=== PATIENT | male | born 1940 | race Caucasian/White ===

== ENCOUNTER 2020-05-16 17:54 | Inpatient (IN) | payer MEDICARE, OTHER ==
[~2020-05-16] VITALS: Ht 170.2 cm; Wt 69.0 kg
--- NOTE | ~2020-05-16 | PROC ---
[address] [address] PROCEDURE REPORT Name: ELÍAS MCNEILL Room: [address] IN M.R.#: [id number] Admission: 05/16/20 Attend Phys: Ely Olguin Discharge: 05/22/20 Date of : 44 Report #: [id number] THIS REPORT FOR: cc: Dereck Fisher MD, Matthew W. MD ~ [facility],Medical Records Staff For GI report, please see the Provation report in Perceptive 7 content. By: [id number] Records Staff [facility] /MAYURI
[~2020-05-16 17:54] MED LIST: NORCO 7.5-3251 EACH PO; TAMSULOSIN HCL0.4 M1 PO; [UNRECOGNIZED DRUG - REMARK] PO
[2020-05-16 17:57] VITALS: BP 91/50
[2020-05-16] MEDS ORDERED: CHILDREN'S ASPI81 M1 PO (18:06)
[2020-05-16 18:28] LABS: ABSOLUTE EOSINOPHILS 0.2 thou/uL (0.0-0.7); ABSOLUTE LYMPHOCYTES 1.9 thou/uL (0.8-5.3); ABSOLUTE MONOCYTES 1.1 thou/uL (0.0-1.2); ABSOLUTE NEUTROPHILS 13.3 thou/uL (1.6-8.1); BASOPHILS 0.2 %; EOSINOPHILS 1.2 %; HEMOGLOBIN 7.5 gm/dL (14.0-18.0); LYMPHOCYTES 11.4 %; MCH 32.3 pg (26.0-34.0); MCHC 33.9 g/dL (28.0-37.0); MCV 95.3 fL (80.0-100.0); MONOCYTES 6.7 %; MPV 8.1 fl. (7.2-11.1); NUCLEATED RBCS 0 /100WBC; PLATELET COUNT* 269 thou/uL (150-400); POLYS 80.5 %; RBC 2.31 mil/uL (4.50-6.00); RDW-CV 12.8 % (10.5-14.5); WBC 16.5 thou/uL (4.0-11.0)
[2020-05-16 18:37] LABS: CALCIUM 7.8 mg/dL (8.5-10.1); POTASSIUM 3.8 mmol/L (3.5-5.1)
[2020-05-16 18:40] LABS: APTT 22.4 Seconds (25.0-31.3); PROTIME 10.3 Seconds (9.20-11.50)
[2020-05-16 18:42] LABS: ALBUMIN 2.5 g/dL (3.4-5.0); TOTAL BILIRUBIN 0.3 mg/dL (<0.1-1.0); TOTAL PROTEIN 5.3 g/dL (6.4-8.2)
[2020-05-16 18:53] LABS: URINE BILIRUBIN NEGATIVE (Negative); URINE BLOOD TRACE (Negative); URINE CLARITY CLEAR; URINE COLOR YELLOW; URINE GLUCOSE-RANDOM NEGATIVE (Negative); URINE KETONES NEGATIVE (Negative); URINE LEUKOCYTES-REFLEX NEGATIVE (Negative); URINE NITRITE-REFLEX NEGATIVE (Negative); URINE PROTEIN NEGATIVE (Negative); URINE SPECIFIC GRAVITY 1.015 (1.005-1.030); URINE UROBILINOGEN 0.2 E.U./dl (0.2-1.0)
[2020-05-16 20:24] LABS: HEMATOCRIT 19.9 % (42.0-52.0); HEMOGLOBIN 6.8 gm/dL (14.0-18.0)
--- NOTE | 2020-05-16 22:04 | NUR ---
BLOOD PRODUCTS STARTED AT 2204. COSIGNED WITH ONESIMO OLIVER. BLOOD STARTED AT 125ML/HR
--- NOTE | 2020-05-16 22:19 | NUR ---
PATIENT TOLERATED BLOOD PRODUCT FOR THE FIRST 15 MINUTES. RATE INCREASED TO 195MLS/HR. PATIENT IS IN NO SIGNS OF DISTRESS. WILL CONTINUE TO MONITOR
--- NOTE | 2020-05-16 22:48 | NUR ---
PATIENT ADMITTED TO 203 BEFORE 1HR VITAL ON BLOOD PRODUCT . FRIDA OLIVER TOOK REPORT
[2020-05-16 22:49] VITALS: BP 110/70
[2020-05-16 23:30] VITALS: BP 106/64
[2020-05-17] VITALS (8 sets, daily range): BP systolic 96–144; BP diastolic 53–69
[2020-05-17 02:07] LABS: HEMATOCRIT 22.3 % (42.0-52.0); HEMOGLOBIN 7.6 gm/dL (14.0-18.0)
--- NOTE | 2020-05-17 09:53 | EKG ---
[place] [address] ELECTROCARDIOGRAM REPORT Name: ELÍAS MCNEILL Room: [address] ADM IN .R.#: [id number] Admission: 05/16/20 Attend Phys: Lisa Whitmore Discharge: Date of : 44 Date of Service: 05/16/201801 Report #: [id number] THIS REPORT FOR: //name// [facility] ED Test Date: 2020-05-16 Test Time: 18:02:54 Pat Name: ELÍAS MCNEILL Department: Room: [facility] Gender: M [employer]: BENNY : [id number] Requested By: Barry Bryant Order Number: [id number] MD: Phillip Devi Measurements Intervals Blevins Rate: 97 P: 44 CA: 144 QRS: 22 QRSD: 93 T: 61 QT: 357 QTc: 454 Interpretive Statements Sinus rhythm Borderline low voltage, extremity leads Abnormal R-wave progression, early transition Compared to ECG 02/15/2013 09:56:17 No significant changes Electronically Signed On 05-17-2020 9:53:19 PRISON GUARD by Phillip Devi [email or web address] <ELECTRONICALLY SIGNED> By: Phillip Devi MD, [facility] 05/17/20 0953 01 180 Phillip Devi MD, [facility] /EPI
--- NOTE | 2020-05-17 12:46 | NUR ---
Pt is A&O. Resides at home alone. Independent. No DME. No hx of HH or SNF. Pt is hopeful that he will be able to return home at dc with HH. Dr to place PT orders. GI following.
[2020-05-17 13:20] LABS: ALBUMIN 2.2 g/dL (3.4-5.0); CALCIUM 7.8 mg/dL (8.5-10.1); CREATININE 0.9 mg/dL (0.6-1.3); POTASSIUM 3.4 mmol/L (3.5-5.1); TOTAL BILIRUBIN 0.2 mg/dL (<0.1-1.0); TOTAL PROTEIN 4.9 g/dL (6.4-8.2)
[2020-05-17 13:24] LABS: ABSOLUTE BASOPHILS 0.1 thou/uL (0.0-0.2); ABSOLUTE EOSINOPHILS 0.2 thou/uL (0.0-0.7); ABSOLUTE LYMPHOCYTES 1.8 thou/uL (0.8-5.3); ABSOLUTE MONOCYTES 0.9 thou/uL (0.0-1.2); ABSOLUTE NEUTROPHILS 9.3 thou/uL (1.6-8.1); BASOPHILS 0.4 %; EOSINOPHILS 1.8 %; LYMPHOCYTES 14.9 %; MCH 32.1 pg (26.0-34.0); MCHC 34.6 g/dL (28.0-37.0); MONOCYTES 7.1 %; MPV 8.6 fl. (7.2-11.1); NUCLEATED RBCS 0 /100WBC; PLATELET COUNT* 226 thou/uL (150-400); POLYS 75.8 %; RBC 1.99 mil/uL (4.50-6.00); RDW-CV 14.5 % (10.5-14.5); WBC 12.3 thou/uL (4.0-11.0)
[2020-05-17 13:29] LABS: HEMATOCRIT 18.5 % (42.0-52.0); HEMOGLOBIN 6.4 gm/dL (14.0-18.0)
[2020-05-18 00:20] LABS: HEMATOCRIT 25.1 % (42.0-52.0); HEMOGLOBIN 8.7 gm/dL (14.0-18.0)
[2020-05-18 04:30] VITALS: BP 137/49
[2020-05-18 04:45] LABS: HEMATOCRIT 24.8 % (42.0-52.0); HEMOGLOBIN 8.6 gm/dL (14.0-18.0); MCH 30.3 pg (26.0-34.0); MCHC 34.6 g/dL (28.0-37.0); MPV 8.8 fl. (7.2-11.1); RBC 2.83 mil/uL (4.50-6.00); RDW-CV 16.1 % (10.5-14.5); WBC 12.3 thou/uL (4.0-11.0)
[2020-05-18 05:21] LABS: ALBUMIN 2.4 g/dL (3.4-5.0); CALCIUM 7.6 mg/dL (8.5-10.1); CREATININE 0.7 mg/dL (0.6-1.3); POTASSIUM 3.1 mmol/L (3.5-5.1); TOTAL BILIRUBIN 0.9 mg/dL (<0.1-1.0); TOTAL PROTEIN 5.1 g/dL (6.4-8.2)
[2020-05-18 05:24] LABS: MCV 87.5 fL (80.0-100.0)
[2020-05-18 10:13] LABS: HEMATOCRIT 24.6 % (42.0-52.0); HEMOGLOBIN 8.4 gm/dL (14.0-18.0)
--- NOTE | 2020-05-18 12:36 | NUR ---
Pt to have have scope today.
[2020-05-18 16:26] LABS: HEMATOCRIT 24.5 % (42.0-52.0); HEMOGLOBIN 8.4 gm/dL (14.0-18.0)
[2020-05-18 17:02] VITALS: BP 129/68
--- NOTE | 2020-05-18 20:19 | NUR ---
I ASSUMED CARE OF THE PATIENT AT 0700. HE IS ALERT AND ORIENTED X4 AND IS ON BEDREST. BED IS IN THE LOW LOCKED POSITION AND CALL LIGHT IS IN REACH. HOURLY ROUNDING IS COMPLETED AND PATIENT NEEDS ARE MET. PAIN IS MANAGED WITH PRN MEDS. HE WAS ON ROOM AIR UNTIL HE RETURNED FROM PACU ON 2 LITERS. HE CAN BE TITRATED DOWN. 2 TAP WATER ENEMAS WERE GIVEN THIS AM BEFORE HIS PROCEDURE. LABS WERE REDRAWN. KOBE IS D/D. WILL CONTINUE TO MONITOR.
[2020-05-18 20:54] VITALS: BP 103/54
[2020-05-19] VITALS (8 sets, daily range): BP systolic 99–213; BP diastolic 49–100
[2020-05-19 03:29] LABS: HEMATOCRIT 22.7 % (42.0-52.0); HEMOGLOBIN 7.7 gm/dL (14.0-18.0); MCH 30.2 pg (26.0-34.0); MCHC 34.1 g/dL (28.0-37.0); MCV 88.6 fL (80.0-100.0); MPV 8.6 fl. (7.2-11.1); RBC 2.56 mil/uL (4.50-6.00); RDW-CV 15.9 % (10.5-14.5); WBC 15.8 thou/uL (4.0-11.0)
[2020-05-19 04:15] LABS: CALCIUM 7.6 mg/dL (8.5-10.1); CREATININE 0.7 mg/dL (0.6-1.3); POTASSIUM 3.2 mmol/L (3.5-5.1)
--- NOTE | 2020-05-19 09:03 | NUR ---
PT IS ABLE TO COMMUNICATE HIS NEEDS TO STAFF EFFECTIVELY. HE HAS DENIED THE NEED FOR PAIN MEDICATION UP TO 0700 THIS MORNING. BULLOCK PATENT DURING BUSINESS INFORMATION ANALYST. TAKES PILL, CRUSHED, IN APPLESAUCE.
--- NOTE | 2020-05-19 16:23 | NUR ---
PT REMAINED ALERT AND ORIENTED. PT RESTING IN BED. PT REQUESTED ICE PACK FOR RIBS. POTASSIUM REPLACED ORDERED. FALL RISK PRECAUTIONS IN PLACE. HOURLY ROUNDING COMPLETED.
[2020-05-20 03:39] LABS: HEMATOCRIT 22.9 % (42.0-52.0); HEMOGLOBIN 7.9 gm/dL (14.0-18.0); MCH 30.9 pg (26.0-34.0); MCHC 34.7 g/dL (28.0-37.0); MCV 89.2 fL (80.0-100.0); MPV 8.7 fl. (7.2-11.1); RBC 2.56 mil/uL (4.50-6.00); RDW-CV 15.9 % (10.5-14.5); WBC 13.9 thou/uL (4.0-11.0)
[2020-05-20 03:52] LABS: ALBUMIN 2.2 g/dL (3.4-5.0); CALCIUM 7.8 mg/dL (8.5-10.1); CREATININE 0.7 mg/dL (0.6-1.3); MAGNESIUM 1.9 mg/dL (1.8-2.4); POTASSIUM 3.6 mmol/L (3.5-5.1); TOTAL BILIRUBIN 0.4 mg/dL (<0.1-1.0); TOTAL PROTEIN 5.2 g/dL (6.4-8.2)
[2020-05-20 04:00] VITALS: BP 123/54
[2020-05-20 07:30] VITALS: BP 107/73
[2020-05-20 12:39] VITALS: BP 119/62
[2020-05-20 16:15] VITALS: BP 134/46; BP 135/71
[2020-05-20 20:00] VITALS: BP 127/62
[2020-05-21 00:34] VITALS: BP 125/65
[2020-05-21 03:51] LABS: CALCIUM 8.2 mg/dL (8.5-10.1); CREATININE 0.7 mg/dL (0.6-1.3); POTASSIUM 3.5 mmol/L (3.5-5.1)
[2020-05-21 03:54] LABS: PREALBUMIN 16.1 mg/dL (18.0-35.7)
[2020-05-21 04:04] LABS: ABSOLUTE EOSINOPHILS 0.6 thou/uL (0.0-0.7); ABSOLUTE LYMPHOCYTES 2.1 thou/uL (0.8-5.3); ABSOLUTE MONOCYTES 1.6 thou/uL (0.0-1.2); ABSOLUTE NEUTROPHILS 11.6 thou/uL (1.6-8.1); BASOPHILS 0.3 %; EOSINOPHILS 3.7 %; HEMOGLOBIN 8.2 gm/dL (14.0-18.0); LYMPHOCYTES 13.3 %; MCH 30.6 pg (26.0-34.0); MCHC 34.1 g/dL (28.0-37.0); MCV 89.7 fL (80.0-100.0); MONOCYTES 9.8 %; MPV 8.8 fl. (7.2-11.1); NUCLEATED RBCS 0 /100WBC; PLATELET COUNT* 337 thou/uL (150-400); POLYS 72.9 %; RBC 2.68 mil/uL (4.50-6.00); RDW-CV 15.5 % (10.5-14.5); WBC 15.9 thou/uL (4.0-11.0)
[2020-05-21 04:08] LABS: % SATURATION 6 % (20-39); IRON 12 ug/dL (50-175)
[2020-05-21 04:35] VITALS: BP 132/67
[2020-05-21 05:15] LABS: ESR (SEDRATE) 60 mm/hr (0-20)
[2020-05-21 08:00] VITALS: BP 145/71
--- NOTE | 2020-05-21 09:52 | NUR ---
RECIEVED REPORT AROUND 714. ASSUMED CARE. VS AND ASSESSMENT CHARTED. PT LYING IN BED. IV'S INTACT. LEFT FOREARM AND RIGHT FOREARM. SALINE LOCK. HEART MONITOR ATTACHED AT SR. MEDS GIVEN PER JUL. PT STATED "6" OUT OF 10 PAIN TO THE FRACTURED RIBS ON LEFT SIDE. GI AND SURGERY SIGNED OFF ON PT. CALL LIGHT WITHIN REACH. WILL CONTINUE TO MONITOR.
[2020-05-21 12:46] VITALS: BP 106/62
[2020-05-21 16:32] VITALS: BP 147/74
--- NOTE | 2020-05-21 18:39 | NUR ---
NO NEW CHANGES. IV'S INTACT LEFT AND RIGHT FOREARM. HEART MONITOR ATTACHED AT SR. PT LYING IN BED. MEDS GIVEN PER JUL. HOURLY ROUNDING PERFORMED. PT ABLE TO WALK SELF AROUND ROOM WITHOUT TROUBLE. BULLOCK D/C'D THIS SHIFT PER VERBAL ORDER. PT DID VOID AFTER KOBE TAKEN OUT. 2L NC TO RA. SAT'S IN UPPER 90'S. CALL LIGHT WITHIN REACH. WILL CONTINUE TO MONITOR.
[2020-05-21 20:30] VITALS: BP 145/62
[2020-05-22] VITALS: BP 132/62
[2020-05-22 04:31] VITALS: BP 155/65
--- NOTE | 2020-05-22 04:37 | NUR ---
SLEPT WELL TONIGHT. UP TO BSC INDEPENDENTLY AND SAFELY. PT DENIES LIGHTHEADNESS OR DIZZINESS. VOIDING WITHOUT DIFFICULTY. O2 ON AT 2L/NC, NO SOA NOTED. HAVING OCC DRY COUGH. TELEMETRY ON SHOWING SR. HS GOALS OF REST AND SAFETY ACHIEVED.
[2020-05-22 08:00] VITALS: BP 112/59
--- NOTE | 2020-05-22 08:00 | NUR ---
ASSUMED CARE OF PATIENT THIS MORNING FROM NIGHT NURSE. PT IS DOING WELL WITH NO CO OF NAUSEA AT THIS TIME. HIS PAIN IS CONTROLLED WITH PO PAIN MEDICATIONS. HE WAS EDUCATED ON POC, DISEASE PROCESS AND USING THE CALL LIGHT FOR ASSISTANCE. BED IS IN THE LOWEST POSITION AND CALL LIGHT IS IN REACH. WILL CONTINUE TO MONITOR.
[2020-05-22] MEDS ORDERED: OMEPRAZOLE40 MG PO (09:06)
[2020-05-22] MEDS ORDERED: CARAFATE 1 GM TA1 G1 PO (09:06)
--- NOTE | 2020-05-22 11:50 | NUR ---
Pt to dc home today, walker to be dispensed through [facility]
[2020-05-22 15:56] VITALS: BP 155/65
== END 2020-05-22 16:10 | disposition home or self-care (01) | DRG 377 ==
LOC: M.ERS 17:54 → M.2W 20:54 → M.TBA-ER 20:54 → M.2W 23:13
PROVIDERS: Family Medicine; Internal Medicine Gastroenterology; Nurse Practitioner Adult Health; Personal Emergency Response Attendant; Surgery; ADMIT Internal Medicine; ATTEND Internal Medicine
PROC: 0W3P8ZZ Control Bleeding in Gastrointestinal Tract, Via Natural or Artificial Opening Endoscopic (ICD-10-PCS; principal; 2020-05-20)
PROC: 0DJD8ZZ Inspection of Lower Intestinal Tract, Via Natural or Artificial Opening Endoscopic (ICD-10-PCS; 2020-05-20)
DX: K26.4 Chronic or unspecified duodenal ulcer with hemorrhage (principal); J15.6 Pneumonia due to other Gram-negative bacteria; K21.01 Gastro-esophageal reflux disease with esophagitis, with bleeding; S22.42XA Multiple fractures of ribs, left side, initial encounter for closed fracture; J94.2 Hemothorax; D62 Acute posthemorrhagic anemia; E87.1 Hypo-osmolality and hyponatremia; K25.4 Chronic or unspecified gastric ulcer with hemorrhage; K22.11 Ulcer of esophagus with bleeding; K44.9 Diaphragmatic hernia without obstruction or gangrene; Z79.899 Other long term (current) drug therapy; R73.9 Hyperglycemia, unspecified; F17.200 Nicotine dependence, unspecified, uncomplicated; R13.10 Dysphagia, unspecified; R68.81 Early satiety; R19.7 Diarrhea, unspecified; K59.00 Constipation, unspecified; K22.2 Esophageal obstruction; W19.XXXA Unspecified fall, initial encounter; R13.14 Dysphagia, pharyngoesophageal phase; K64.4 Residual hemorrhoidal skin tags; K63.5 Polyp of colon; Z20.822 Contact with and (suspected) exposure to COVID-19; Z90.49 Acquired absence of other specified parts of digestive tract; Z79.82 Long term (current) use of aspirin; Y93.89 Activity, other specified; Y92.89 Other specified places as the place of occurrence of the external cause; Y99.8 Other external cause status

== ENCOUNTER → 2020-05-26 | Outpatient (CLI) | payer MEDICARE, OTHER ==
[~2020-05-26] MED LIST changes: +CARAFATE 1 GM TA1 G1 PO; +CHILDREN'S ASPI81 M1 PO; +OMEPRAZOLE40 MG PO
== END ==
LOC: M.ULTRA 13:38
PROVIDERS: ATTEND Physician Assistant
DX: I82.621 Acute embolism and thrombosis of deep veins of right upper extremity (principal)

== ENCOUNTER → 2020-08-11 | Outpatient (CLI) | payer MEDICARE, OTHER ==
[2020-08-11 11:04] LABS: ABSOLUTE BASOPHILS 0.1 thou/uL (0.0-0.2); ABSOLUTE EOSINOPHILS 0.2 thou/uL (0.0-0.7); ABSOLUTE LYMPHOCYTES 1.9 thou/uL (0.8-5.3); ABSOLUTE MONOCYTES 0.6 thou/uL (0.0-1.2); ABSOLUTE NEUTROPHILS 4.6 thou/uL (1.6-8.1); BASOPHILS 0.8 %; EOSINOPHILS 3.3 %; HEMATOCRIT 43.3 % (42.0-52.0); HEMOGLOBIN 14.5 gm/dL (14.0-18.0); LYMPHOCYTES 25.3 %; MCH 30.1 pg (26.0-34.0); MCHC 33.6 g/dL (28.0-37.0); MCV 89.8 fL (80.0-100.0); MONOCYTES 7.7 %; MPV 8.3 fl. (7.2-11.1); NUCLEATED RBCS 0 /100WBC; PLATELET COUNT* 262 thou/uL (150-400); POLYS 62.9 %; RBC 4.82 mil/uL (4.50-6.00); RDW-CV 14.9 % (10.5-14.5); WBC 7.4 thou/uL (4.0-11.0)
[2020-08-11 11:17] LABS: ALBUMIN 3.8 g/dL (3.4-5.0); CALCIUM 9.1 mg/dL (8.5-10.1); CREATININE 0.9 mg/dL (0.6-1.3); TOTAL BILIRUBIN 0.3 mg/dL (<0.1-1.0); TOTAL PROTEIN 8.1 g/dL (6.4-8.2)
[2020-08-11 12:02] LABS: % SATURATION 22 % (20-39); IRON 57 ug/dL (50-175)
== END ==
LOC: M.LAB 10:42
PROVIDERS: ATTEND Internal Medicine Gastroenterology
DX: K25.9 Gastric ulcer, unspecified as acute or chronic, without hemorrhage or perforation (principal); K22.10 Ulcer of esophagus without bleeding; K26.9 Duodenal ulcer, unspecified as acute or chronic, without hemorrhage or perforation; D64.9 Anemia, unspecified